=== PATIENT | female | born 1940 | race Caucasian/White ===

== ENCOUNTER 2023-09-10 16:13 | Emergency (ER) | payer MEDICARE ==
[~2023-09-10] VITALS: Ht 172.7 cm; Wt 72.6 kg
[2023-09-10 16:31] VITALS: BP_SYST 149; PULSE 71; RESP 18; TEMP 98; O2SAT 98
[2023-09-10] MEDS ORDERED: oxyCODONE HCL 10 MG TAB.ER.12H PO ONE ×2 (20:00→23:14)
== END 2023-09-10 23:35 | disposition home or self-care (01) ==
LOC: SED 16:13
DX: S82.832A Other fracture of upper and lower end of left fibula, initial encounter for closed fracture (principal); S39.012A Strain of muscle, fascia and tendon of lower back, initial encounter; S16.1XXA Strain of muscle, fascia and tendon at neck level, initial encounter; E78.5 Hyperlipidemia, unspecified; Z88.0 Allergy status to penicillin; Z79.899 Other long term (current) drug therapy; Z88.5 Allergy status to narcotic agent; W01.0XXA Fall on same level from slipping, tripping and stumbling without subsequent striking against object, initial encounter; Y93.89 Activity, other specified; Y92.89 Other specified places as the place of occurrence of the external cause; Y99.8 Other external cause status
CPT/HCPCS: 70450-TC; 72125-TC; 72131; 73560; 76376; 99284